=== PATIENT | female | born 1990 | race Caucasian/White ===

== ENCOUNTER 2017-02-01 07:35 | Day surgery (SDC) | payer OTHER ==
--- NOTE | 2017-01-30 21:16 | GHP ---
[f rep st] HISTORY AND PHYSICAL Patient is a 26-year-old 1, para 0, who came in on 01/23/2017 for a positive . Patient on 01/20/2017 had bleeding x3 hours, now brown spotting. The ultrasound showed 1 fetus, no cardiac activity, and a 10-day difference in growth. It was believed that patient had a missed AB. Patient declined labs, chose to just wait for 2 weeks, and then when I called the patient back, she decided to do misoprostol 400 mcg q.12 hours x3 doses, and that was done over the weekend of 01/27, 01/28, and 01/29. On Monday, 01/30, called to discuss how things went, and patient stated that there was minimal bleeding, minimal cramping, and no tissue loss vaginally, so plan of care was decided to be a D and C. MEDICAL HISTORY: Cystitis, UTI, positive GBS culture in 09/2016, history of borderline anemia. The patient is a vegetarian. SURGERIES: [place] teeth extraction at the age of 21. FAMILY HISTORY: Noncontributory. GYNECOLOGICAL HISTORY: Menarche at the age of 9. Interval is 28 days, length is 5-6 days. Last menstrual period was 11/11/2016. Dates were certain. This was normal. Positive test was 12/16/2016. History of OCP use and a normal Pap in 12/2015. Review of systems x 8 noncontributory LABS: Patient is B positive, antibody negative. RPR was nonreactive. Rubella titer was immune. Hepatitis was negative. HIV was negative. Pap was within normal limits, and gonorrhea and chlamydia were negative. Patient had previous positive cardiac activity on 01/11/2017, with no cardiac activity on 01/23/2017. PHYSICAL ASSESSMENT: GENERAL: Patient was awake, alert, oriented x3. LUNGS: Clear bilaterally. ABDOMEN: Bowel sounds were positive in all 4 quadrants. EXTREMITIES: DTRs were 1+ bilaterally with no clonus. Homans sign was negative bilaterally. DIAGNOSIS: Missed . PLAN OF CARE: D and C. Previous use of misoprostol with minimal response x3 doses of 400 mcg on 01/27, 01/28 and 01/29. /[id number]/MODL MTDD
[~2017-02-01 07:35] MED LIST: DOXYCYCLINE HYCLATE 100 MG CAP/TAB PO ONE; LR 1,000 ML IV ONE
[2017-02-01] MEDS ORDERED: DOXYCYCLINE HYCLATE 100 MG CAP/TAB PO ONE (08:40)
--- NOTE | 2017-02-01 10:46 | PDANEPAE ---
ANE History of Present Illness Missed Ab. ANE Past Medical History - Cardiovascular History Hx Hypertension: No Hx Arrhythmias: No Hx Chest Pain: No Hx Coronary Artery / Peripheral Vascular Disease: No Hx CHF / Valvular Disease: No Hx Palpitations: No - Pulmonary History Hx COPD: No Hx Asthma/Reactive Airway Disease: No Hx Recent Upper Respiratory Infection: No Hx Oxygen in Use at Home: No Hx Sleep Apnea: No - Surgical History Prior Surgeries: Prior wisdom teeth removal. ANE Review of Systems Review of Systems: - Exercise capacity Exercise capacity: >=4 METS ANE Patient History - Allergies Allergies/Adverse Reactions: No Known Allergies Allergy (Unverified 11/26/10 19:50) - Home Medications Home Medications: Ortotricycline Low DAILY 11/26/10 [Last Taken Unknown] - NPO status NPO Status: no food or drink >8 hours NPO Since - Liquids (Date): 02/01/17 NPO Since - Liquids (Time): 05:00 NPO Since - Solids (Date): 01/31/17 NPO Since - Solids (Time): 18:30 - Anes Hx Anes Hx: no prior problems - Smoking Hx Smoking Status: Never smoked - Alcohol Use Alcohol Use: Occasionally - Family Anes Hx Family Anes Hx: neg - N/A ANE Labs/Vital Signs - Vital Signs Height: 165.1 cm Weight: 57.153 kg ANE Physical Exam - Airway Neck exam: FROM Mallampati Score: Class 1 Mouth exam: normal dental/mouth exam - Pulmonary Pulmonary: no respiratory distress - Cardiovascular Cardiovascular: regular rate and rhythym - ASA Status ASA Status: I ANE Anesthesia Plan Anesthesia Plan: GA with mask
[2017-02-01] MEDS ORDERED: MIDAZOLAM 2 MG/2 ML VIAL ONE (10:47)
[2017-02-01] MEDS ORDERED: PROPOFOL 200 MG/20 ML VIAL ONE ×2 (10:56)
[2017-02-01] MEDS ORDERED: ONDANSETRON 4 MG/2 ML VIAL ONE (10:57)
[2017-02-01] MEDS ORDERED: DEXAMETHASONE 4 MG/ML VIAL ONE ×2 (10:57→11:48)
[2017-02-01] MEDS ORDERED: fentaNYL 100 MCG/2 ML INJ ONE (10:57)
[2017-02-01] MEDS ORDERED: LIDOCAINE 2% 5 ML SDV ONE (10:57)
[2017-02-01] MEDS ORDERED: KETOROLAC 30 MG/1 ML SDV ONE (12:07)
[2017-02-01] MEDS ORDERED: HYDROCODONE/APAP 5/325 TAB PO PRN (12:10)
[2017-02-01] MEDS ORDERED: NALOXONE HCL 0.4 MG/ML INJ IVP PRN (12:10)
[2017-02-01] MEDS ORDERED: ONDANSETRON 4 MG/2 ML VIAL IVP PRN (12:10)
[2017-02-01] MEDS ORDERED: fentaNYL 100 MCG/2 ML INJ IVP PRN (12:10)
--- NOTE | 2017-02-01 12:11 | POSTANESTH ---
Post Anesthetic Evaluation Cardiovascular Status: Normal, Stable, Similar to Pre-Op Cond Respiratory Status: Normal, Stable, Similar to Pre-op Cond. Level of Consciousness/Mental Status: Can Participate in Eval, Alert and Oriented Pain Control: Adequate, Prn Tx Ordered Nausea/Vomiting Control: Adequate, Prn Tx Ordered Complications Possibly Related to Anesthesia: None Noted
[2017-02-01 12:25] VITALS: RESP 18
[2017-02-01 12:41] VITALS: BP 100/50; PULSE 77; O2SAT 100
[2017-02-01 15:33] VITALS: TEMP 97.8
--- NOTE | 2017-02-01 22:37 | GOP ---
[f rep st] OPERATIVE REPORT DATE OF OPERATION: 02/01/2017 SURGEON: Virginia Montoya DO ANESTHESIA: General. ANESTHESIOLOGIST: Yoshi Black. PREOPERATIVE DIAGNOSIS: Missed . POSTOPERATIVE DIAGNOSIS: Missed . PROCEDURE PERFORMED: Suction dilation and curettage. FINDINGS: Exam under anesthesia: Mobile midposition uterus which is slightly enlarged in size. SPECIMENS: Products of conception. Post D and C ultrasound showed a thin endometrial stripe. ESTIMATED BLOOD LOSS: 10 cc. INDICATIONS: Patient is a 26-year-old, 1, para 0, who presented for OB care at [facility] in January 2017 after having a positive test. The patient had some bleeding and s potting. The patient had an ultrasound which showed a crown-rump length of 9 days with no cardiac ac tivity and so a diagnosis of missed was made. Patient was treated with Cytotec and attempte d to manage with medical management. However, the patient did not pass the , so she agreed to proceed with a suction dilation and curettage. Risks and benefits of the procedure were reviewed with the patient and patient was properly consented. DESCRIPTION OF PROCEDURE: She had been given 100 mg of doxycycline preoperatively. She was taken to the operating room and placed on the operating table in dorsal supine position where general anesthe laura was obtained. She was then repositioned into the dorsal lithotomy position with the Yellofin sti rrups and prepped and draped in normal sterile fashion. Exam under anesthesia revealed a mobile, mid position uterus with no adnexal masses. A speculum was then placed in the patient's vagina. An Jcarlos s clamp was used to grasp the anterior lip of the cervix. The cervix was then carefully dilated to a llow for the introduction of a 10 curved suction curette. A circumferential curettage was performed. A moderate amount of products of conception were noted. A sharp metal curette Guajardo was then introd uced, and a circumferential curettage was performed and 1 additional pass of the suction curette was then done. Instruments were then removed from the patient's vagina. A transvaginal ultrasound showe d a thin endometrial stripe and no retained products of conception. Instruments were then removed fr om the patient's vagina. The patient was easily awoken from anesthesia. Sponge count was correct. The patient was transferred to recovery room in stable condition. /[id number]/MODL
== END 2017-02-01 13:30 | disposition home or self-care (01) ==
LOC: FOBOP 07:35
PROVIDERS: ATTEND Obstetrics & Gynecology
PROC: 10D17ZZ Extraction of Products of Conception, Retained, Via Natural or Artificial Opening (ICD-10-PCS; principal; 2017-02-01)
DX: O02.1 Missed abortion (principal)
CPT/HCPCS: J1100; J1885; J2250; J2405; J2704; J3010

== ENCOUNTER 2017-11-30 13:07 | Inpatient (IN) | payer OTHER ==
[2017-11-30] MEDS ORDERED: OXYTOCIN/RINGERS LACTATE 1,000 ML IV PRN (14:03)
[2017-11-30] MEDS ORDERED: TERBUTALINE SULFATE 1 MG/ML VIAL IV PRN (14:03)
[2017-11-30] MEDS ORDERED: OLIVE OIL 118 ML BTL MISC PRN (14:03)
[2017-11-30] MEDS ORDERED: IBUPROFEN 600 MG TAB PO PRN (14:03)
[2017-11-30] MEDS ORDERED: MISOPROSTOL 200 MCG TAB PR PRN (14:03)
[2017-11-30] MEDS ORDERED: LR 1,000 ML IV PRN (14:03)
[2017-11-30] MEDS ORDERED: EPSOM SALT 454 GM TP PRN (14:03)
[2017-11-30] MEDS ORDERED: AMPICILLIN SODIUM 2 GM in NS 100 ML IV ONE (14:03)
[2017-11-30] MEDS ORDERED: LIDOCAINE 1% 300 MG/30 ML SDV SC PRN (14:03)
[2017-11-30] MEDS ORDERED: AMPICILLIN SODIUM 1 GM in NS 100 ML IV SCH (14:15)
[2017-11-30 14:40] LABS: PLATELET COUNT 183 10^3/uL (150-400)
[2017-11-30] MEDS ORDERED: OLIVE OIL 118 ML BTL ONE (15:21)
[2017-11-30] MEDS ORDERED: OXYTOCIN 10 UNIT/ML VIAL ONE (15:21)
[2017-11-30] MEDS ORDERED: LIDOCAINE 1% 300 MG/30 ML SDV ONE (15:21)
[2017-11-30] MEDS ORDERED: AMMONIA AROMATIC 1 EACH AMP IH ONE (15:21)
[2017-11-30] MEDS ORDERED: MISOPROSTOL 200 MCG TAB ONE (15:22)
[2017-11-30] MEDS ORDERED: LR 500 ML IV PRN (16:45)
[2017-11-30] MEDS ORDERED: OXYTOCIN/RINGERS LACTATE 500 ML IV SCH (17:00)
--- NOTE | 2017-11-30 18:04 | GHP ---
DATE OF ADMISSION: 11/30/2017 HISTORY OF PRESENT ILLNESS: The patient is a 27-year-old G2, A1, at 38 weeks and 5 days by last mens trual period and a 7+ week ultrasound, who presents after spontaneous rupture of membranes at 12:30 t his afternoon with clear fluid. The patient has a history of GBS bacteria early in the and knows to present for antibiotics. The patient reports pelvic cramping over the last 1-2 weeks. How ever, it has steadily been increasing since the rupture of membranes. The patient still would descri be the cramping as mild. The patient has been feeling good movement and is not noticing any bl ood in the fluid. The patient is aware of trying to stimulate labor if it does not continue and prog ress on its own. Pitocin will be ordered and the patient can request it at any time if the labor is not building. CARE: The patient has been with [facility] since approximately 7 weeks gestation . The patient had some bleeding in the first trimester and had a subchorionic hemorrhage on ultrasou nd. This resolved, but the patient again had spotting around 20 weeks. She was diagnosed with a pre via at the 20-week ultrasound, but this totally resolved by 24 weeks and was 2.7 cm from the os. Oth erwise the has been uncomplicated. LABS: Include maternal blood type B positive with negative antibody screen. RPR nonreactiv e. Rubella immune. Hepatitis B surface antigen negative. HIV negative. Cystic fibrosis, SMA, Frag ile X, all negative in May 2017. Varicella was immune. Urinalysis and culture were negative. Pap smear negative. Gonorrhea and chlamydia negative. Verified testing was negative. MSAFP was negati ve. Hemoglobin and hematocrit have been low through the . The patient's baseline early in was 35% hematocrit, and this dropped to 33% at mid . The patient has been on iron . 1-hour Glucola was 96. GBS culture was positive for bacteria in the first trimester. PAST MEDICAL HISTORY: Only history of UTIs, uncomplicated. PAST SURGICAL HISTORY: 1. D and C in January 2017. 2. Odontectomy at the age of 21. PAST OBSTETRIC HISTORY: Missed AB in January 2017, managed with a D and C. ALLERGIES: The patient has no known drug allergies. CURRENT MEDICATIONS: vitamins with Dha, calcium, and iron supplementation. SOCIAL HISTORY: The patient is and her , Flo, is with her today. The patient is a nonsmoker and no illicit drug use. She had social alcohol prior to the . LABORATORY DATA: Admission laboratory reveals white count of 12, H and H of 12 and 37, and platelets of 183,000. PHYSICAL EXAM: On admission: GENERAL: The patient is a well-developed, well-nourished, white female, in no physical distress. Estevan martino does comment on mild cramping. The patient is afebrile with a temp of 36.8, and blood pressure 112/76 with normal pulse and respirations. See nursing documentation for full details. ABDOMEN: S oft and nontender. There is a reactive NST with a baseline in the 130s with good variability and acc elerations. No decelerations noted. There is only uterine irritability, but contractions are mildly evident every 3-4 minutes. Ultrasound is performed that does confirm vertex presentation and abunda nt amniotic fluid. PELVIC: Evidence of clear amniotic fluid, which was Nitrazine positive. A digit al cervical exam is not performed. EXTREMITIES: Nontender and no edema. The patient received 1st d ose of antibiotics at 1445. ASSESSMENT: Intrauterine at 38 weeks and 5 days. Spontaneous rupture of membranes with po sitive Group B Strep bacteria. Has received 1st dose of antibiotics and this is scheduled for every 4 hours. Vertex presentation. PLAN: The patient is having increased uterine activity and we will add Pitocin if needed for augment ation. /[id number]/MODL
[2017-11-30] MEDS: AMPICILLIN SODIUM 1 GM in NS 100 ML IV SCH ×2 (18:55→22:57)
[2017-12-01] MEDS ORDERED: METHYLERGONOVINE MAL 0.2 MG/ML INJ ONE (00:25)
[2017-12-01] MEDS ORDERED: ceFAZolin 2 GM/DEXTROSE 100 ML IV ONE (01:22)
--- NOTE | 2017-12-01 01:30 | OBDEL ---
Info Type: Vaginal Presentation at Delivery: Vertex GBS+: Yes Antibiotic Used for + GBS: Ampicillin (x3 doses) Intrapartum Medications: Generic Name Dose Route Start Last Admin Trade Name Freq PRN Reason Stop Dose Admin Lactated Ringer's 1,000 mls @ 0 mls/hr 11/30/17 14:03 11/30/17 14:49 Lr IV 12/01/17 14:02 1,000 mls PRN PRN Administration SEE PROTOCOL CONDITIONS Protocol Per Protocol Ampicillin Sodium 1 gm/ Sodium 100 mls @ 200 mls/hr 11/30/17 18:45 11/30/17 22:57 Chloride IV 12/30/17 18:44 100 mls Q4H BEN Administration Protocol Discontinued Medications Generic Name Dose Route Start Last Admin Trade Name Freq PRN Reason Stop Dose Admin Ampicillin Sodium 2 gm/ Sodium 110 mls @ 220 mls/hr 11/30/17 14:03 11/30/17 14:49 Chloride IV 11/30/17 14:32 110 mls ONCE ONE Administration Protocol Ampicillin Sodium 1 gm/ Sodium 100 mls @ 200 mls/hr 11/30/17 14:15 11/30/17 16:47 Chloride IV 12/30/17 14:14 Not Given Q4H BEN Protocol Indications for Delivery: SROM Vaginal Delivery - Delivery Provider Delivery Physician/CNM: Kimberli Hernandez - Labor and Delivery Onset of Contractions Date: 11/30/17 Onset of Contractions Time: 18:00 Onset of Contractions Type: Spontaneous Rupture of Membranes Date: 11/30/17 Rupture of Membranes Time: 12:30 Rupture of Membranes Type: Spontaneous Amniotic Fluid Color: Clear Dilation Complete Date: 11/30/17 Dilation Complete Time: 23:00 Placenta Delivery Date: 12/01/17 Placenta Delivery Time: 00:20 Total Hours of Labor: 6 Laceration: 1st Degree (perineal, midline) Vaginal Sponge Count Correct: Yes Vaginal Needle Count Correct: Yes Vaginal Sweep Performed: Yes EBL: 600 Delivery Events: Post Hemorrhage, Retained Placenta ( currettage with Dylan's currette x 2 passes - RPOCs obtained and then uterus lining appeared empty on u/s. pt given 800mcg cytotec pr and .2 mg Methergine IM, uterus did tone up after POCs removed) [place] Data LARISSA: 12/09/17 Gestational Age: 38 week(s) and 6 day(s) Mi Delivery Date: 11/30/17 Delivery Time: 23:50 Sex of : Male Score (1 Min): 8 Score (5 Min): 9 ICD10 Worksheet Patient Problems: Problems Problem Status Onset S/P dilation and curettage Acute Retained placenta parts or membranes Acute Uterine atony, , current hospitalization Acute hemorrhage Acute (spontaneous vaginal delivery) Acute
[2017-12-01] MEDS: AMPICILLIN SODIUM 1 GM in NS 100 ML IV SCH ×4 (04:02→11:51)
[2017-12-01] MEDS: ACETAMINOPHEN 325 MG TAB PO SCH ×3 (04:19→15:17)
[2017-12-01] MEDS: IBUPROFEN 600 MG TAB PO SCH ×3 (10:34→20:01)
--- NOTE | 2017-12-01 20:46 | OBPP ---
Progress Note Assessment/Plan: Assessment: PPD1 s/p complicated by PPH (600) and retained placenta requiring curettage in room after delivery. PPH: - Hct 28.6 today from 37.1. Lochia now minimal. No recheck for tomorrow if no change in her bleeding. Iron BID. Assymptomatic, not tachy. Retained placenta: - Ancef 2 g x 1 after delivery. Routine cares otherwise. Potentially home tomorrow. Rh pos, Rubella immune. JM Subjective/ Course: Doing well, pain controlled, BF going well. Baby sleepy. Denies any real s/sx of anemia - no lightheaded or dizzy. Objective: 12/01/17 06:50 Patient ABO/Rh B POSITIVE 11/30/17 14:20 Temp Pulse Resp BP Pulse Ox 37.0 C 82 16 94/60 L 94 12/01/17 10:00 12/01/17 04:18 12/01/17 10:00 12/01/17 10:00 12/01/17 02:39 Uterine Position/Fundal Height: At Umbilicus Uterine Tone: Firm
[2017-12-02] MEDS: ACETAMINOPHEN 325 MG TAB PO SCH ×4 (01:02→14:13)
[2017-12-02] MEDS: IBUPROFEN 600 MG TAB PO SCH ×3 (02:44→14:14)
[2017-12-02] MEDS ORDERED: FERROUS SULFATE 325 MG TAB PO SCH (09:00)
[2017-12-02 09:15] VITALS: BP 92/65
--- NOTE | 2017-12-02 09:47 | OBPP ---
Progress Note Assessment/Plan: Assessment: 27 G2 now P1 (A1) PPD#2 s/p c/b RPOC with bedside curettage. Asymptomatic anemia. going well. Plan: DC home. Reviewed std pp dc instructions including ssx pp depression. See dc summary. Doreen Yoon MD, FACOG [facility] 12/02/17 09:57 Subjective/ Course: Doing well, pain controlled, BF going well. Baby sleepy. Denies any real s/sx of anemia - no lightheaded or dizzy. 12/02/17 10:03 Doing well. No lightheadedness or dizziness. Ambulating without difficulty. going well. Voiding without difficulty. + flatus but no BM yet. Objective: 12/01/17 06:50 Patient ABO/Rh B POSITIVE 11/30/17 14:20 Temp Pulse Resp BP Pulse Ox 36.8 C 84 18 92/65 L 96 12/02/17 08:45 12/02/17 08:45 12/02/17 08:45 12/02/17 08:45 12/02/17 08:45 Gen - pleasant, NAD CV - RRR chest - CTAB abd - soft, fundus firm at u-3, + BS ext - calves NT, trace edema declined perineum exam - did not have a laceration Uterine Position/Fundal Height: Umbilicus -3 Uterine Tone: Firm
--- NOTE | 2017-12-02 10:08 | OBGCSDC ---
General Delivery Information - General Info : 2 Para: 1 Abortions: 1 Type: Vaginal L&D Analgesia/Anesthesia Type: None Admission Date: 11/30/17 Labs: Patient ABO/Rh B POSITIVE 11/30/17 14:20 Hct 28.6 % (38.0-47.0) L 12/01/17 06:50 - Hospital Course : Doing well, pain controlled, BF going well. Baby sleepy. Denies any real s/sx of anemia - no lightheaded or dizzy. 12/02/17 10:03 Doing well. No lightheadedness or dizziness. Ambulating without difficulty. going well. Voiding without difficulty. + flatus but no BM yet. Vaginal - Delivery Provider Delivery Physician/CNM: Kimberli Hernandez - Diagnosis Labor: Spontaneous Rupture of Membranes Type: Spontaneous Amniotic Fluid Color: Clear Laceration: 1st Degree (perineal, midline) Delivery Events: Post Hemorrhage, Retained Placenta ( currettage with Dylan's currette x 2 passes - RPOCs obtained and then uterus lining appeared empty on u/s. pt given 800mcg cytotec pr and .2 mg Methergine IM, uterus did tone up after POCs removed) - Delivery EBL: 600 [place] Data LARISSA: 12/09/17 Gestational Age: 39 week(s) and 0 day(s) Mi Delivery Date: 11/30/17 Delivery Time: 23:50 Sex of Infant: Male [place] Weight (gm): 3300 kg Score (1 Min): 8 Score (5 Min): 9 Discharge Information - Discharge Information Instruction/Follow Up: See Instruction Sheet (pelvic rest x 6 weeks), Four Weeks (Free Therapist visit with [facility] at [facility]), Six Weeks ( exam with physician at [facility])
== END 2017-12-02 15:15 | disposition home or self-care (01) | DRG 798 ==
LOC: FLD 13:07 → OBSVTOIN 14:06 → FOB 12-01 02:19
PROVIDERS: ADMIT Obstetrics & Gynecology; ATTEND Obstetrics & Gynecology
PROC: 10E0XZZ Delivery of Products of Conception, External Approach (ICD-10-PCS; principal; 2017-11-30)
PROC: 0HQ9XZZ Repair Perineum Skin, External Approach (ICD-10-PCS; principal; 2017-11-30)
PROC: 10D18ZZ Extraction of Products of Conception, Retained, Via Natural or Artificial Opening Endoscopic (ICD-10-PCS; principal; 2017-11-30)
DX: O72.0 Third-stage hemorrhage (principal); O99.820 Streptococcus B carrier state complicating pregnancy; O90.81 Anemia of the puerperium; Z3A.39 39 weeks gestation of pregnancy; Z37.0 Single live birth
CPT/HCPCS: J0290; J0690; J2210; J2590